=== PATIENT | male | born 1995 | race Caucasian/White ===

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

== ENCOUNTER → 2018-07-06 | Outpatient (CLI) | payer OTHER | LOC: COL.RAD 13:15 | DX: M22.41 Chondromalacia patellae, right knee (principal); S72.401A Unspecified fracture of lower end of right femur, initial encounter for closed fracture ==

== ENCOUNTER → 2021-11-05 | Outpatient (CLI) | payer SELFPAY | LOC: COL.RAD 08:14 | DX: M48.061 Spinal stenosis, lumbar region without neurogenic claudication (principal); Z98.1 Arthrodesis status ==